=== PATIENT | female | born 1935 | race Caucasian/White ===

== ENCOUNTER 2016-12-02 12:40 | Emergency (ER) | payer OTHER ==
[~2016-12-02] VITALS: Ht 147.3 cm; Wt 68.0 kg
[~2016-12-02 12:40] MED LIST: AMLODIPINE BESY10 MG PO; ASCORBIC ACID500 M3 PO; ASPIRIN CHEWABL81 M1 PO; CALCIUM 600 +1 EAC1 PO; CELEBREX200 MG PO; DIABETA,MICRON2.5 MG PO; FERROUS SULFAT325 MG PO; GLYBURIDE2.5 MG PO; HYDROCHLOROTHIA25 MG PO; HYDROCODON-ACE1 EAC7 PO; KEFLEX500 MG PO; LIPITOR20 MG PO; LO-DOSE ASPIRIN81 M1 PO; LOSARTAN POTASS50 MG PO; MELATONIN5 M1 PO; MELOXICAM15 MG PO; NAPROSYN500 MG PO; NEXIUM40 MG PO; NORVASC5 MG PO; OS-CAL ULTRA T1 EACH; OSCAL 250 W/VI250 MG PO; SENNA-TIME S T1 EACH PO; TRADJENTA5 MG PO; TYLENOL EXTRA500 MG PO; VITAMIN C500 M1 PO; WARFARIN SODIUM4 MG PO; Xanax PO
[2016-12-02] MEDS ORDERED: KEFLEX500 MG PO (16:04)
[2016-12-02] MEDS ORDERED: BACTRIM,SEPT1 TABLET PO (16:04)
[2016-12-02 16:49] VITALS: BP 132/76
== END 2016-12-02 16:49 | disposition home or self-care (01) ==
LOC: EME 12:40
DX: L97.929 Non-pressure chronic ulcer of unspecified part of left lower leg with unspecified severity (principal); L03.116 Cellulitis of left lower limb; E11.9 Type 2 diabetes mellitus without complications; E78.5 Hyperlipidemia, unspecified; I10 Essential (primary) hypertension; K21.9 Gastro-esophageal reflux disease without esophagitis; Z88.6 Allergy status to analgesic agent
CPT/HCPCS: 99281; 99284

== ENCOUNTER 2017-06-05 23:24 | Emergency (ER) | payer OTHER ==
[~2017-06-05] VITALS: Ht 147.3 cm; Wt 65.0 kg
[~2017-06-05 23:24] MED LIST changes: +BACTRIM,SEPT1 TABLET PO
[2017-06-06 00:40] LABS: HEMATOCRIT 42.7 % (36.0-46.0); MCH 31.8 PG (29.0-34.0); MCV 96.2 FL (83-99); MEAN PLAT.VOLUME 9.3 uM^3 (9.5-12.4); PLATELET COUNT 221 K/uL (156-360); RBC DIS.WIDTH-CV 12.9 % (11.8-14.6); RBC DIS.WIDTH-SD 45.8 % (39-53); RED BLOOD COUNT 4.44 M/uL (3.80-5.20); WHITE BLOOD COUNT 6.8 K/uL (4.1-10.2)
[2017-06-06 00:52] LABS: CHLORIDE 105 mEq/L (99-109); POTASSIUM 4.2 mEq/L (3.7-5.4); SODIUM 140 mEq/L (136-147)
[2017-06-06 00:54] LABS: GLUCOSE 100 mg/dL (70-99)
[2017-06-06 00:56] LABS: ANION GAP 8 MEQ/L (2-14)
[2017-06-06 00:58] LABS: GFR ESTIMATE (CALCULATED) 42 mL/min/
[2017-06-06 00:59] LABS: UREA NITROGEN (BUN) 27 mg/dL (9-23)
[2017-06-06 02:55] VITALS: BP 191/83
== END 2017-06-06 03:21 | disposition home or self-care (01) ==
LOC: EME 23:24
PROVIDERS: Emergency Medicine
DX: M54.42 Lumbago with sciatica, left side (principal); R20.0 Anesthesia of skin; E11.9 Type 2 diabetes mellitus without complications; E78.5 Hyperlipidemia, unspecified; I10 Essential (primary) hypertension; K21.9 Gastro-esophageal reflux disease without esophagitis; Z87.891 Personal history of nicotine dependence
CPT/HCPCS: 80048; 85027; 93971; 99281; 99284

== ENCOUNTER 2017-07-14 07:15 | Emergency (ER) | payer OTHER ==
[~2017-07-14] VITALS: Ht 147.3 cm; Wt 63.8 kg
[2017-07-14 07:49] LABS: HEMATOCRIT 40.4 % (36.0-46.0); MCH 32.5 PG (29.0-34.0); MCHC 33.9 G/DL (30.0-36.0); PLATELET COUNT 205 K/uL (156-360); RBC DIS.WIDTH-CV 12.8 % (11.8-14.6); RED BLOOD COUNT 4.21 M/uL (3.80-5.20); WHITE BLOOD COUNT 5.9 K/uL (4.1-10.2)
[2017-07-14 07:50] LABS: POINT-OF-CARE METER ID UU13113702
[2017-07-14 07:54] LABS: PROTHROMBIN TIME 10.7 SEC (10.2-12.9)
[2017-07-14 07:57] LABS: PTT 27.7 SEC (25-37)
[2017-07-14 08:35] LABS: ANION GAP 10 MEQ/L (2-14); CHLORIDE 104 MEQ/L (99-109); GFR ESTIMATE (CALCULATED) 51 mL/min/; GLUCOSE 222 mg/dL (70-99); POTASSIUM 4.4 MEQ/L (3.7-5.4); SAMPLE HEMOLYSIS CHECK 0; SAMPLE ICTERIC CHECK 0; SAMPLE LIPEMIA CHECK 0; SODIUM 138 MEQ/L (136-147); UREA NITROGEN (BUN) 22 mg/dL (9-23)
[2017-07-14 08:37] LABS: ADD MIUA? NO; BILIRUBIN NEGATIVE; BLOOD NEGATIVE; COLOR YELLOW ((YELLOW)); GLUCOSE (STRIP) 150; KETONES NEGATIVE; LEUKOCYTES NEGATIVE; NITRITE NEGATIVE; PROTEIN (STRIP) NEGATIVE; SPECIFIC GRAVITY 1.016 (1.000-1.030); UROBILINOGEN 0.2 MG/DL (0.2-1.0)
[2017-07-14 08:37] LABS: TROP-I INTERPRETATION NEGATIVE; TROPONIN-I 0.01 ng/mL (0.0-0.30)
[2017-07-14 09:59] LABS: TROP-I INTERPRETATION NEGATIVE; TROPONIN-I < 0.01 ng/mL (0.0-0.30)
[2017-07-14 10:25] VITALS: BP 122/84
== END 2017-07-14 10:26 | disposition home or self-care (01) ==
LOC: EME 07:15
PROVIDERS: Nurse Practitioner Family
DX: R42 Dizziness and giddiness (principal); G56.02 Carpal tunnel syndrome, left upper limb; J98.11 Atelectasis; I10 Essential (primary) hypertension; E11.9 Type 2 diabetes mellitus without complications; Z79.84 Long term (current) use of oral hypoglycemic drugs; E78.5 Hyperlipidemia, unspecified; K21.9 Gastro-esophageal reflux disease without esophagitis; Z87.891 Personal history of nicotine dependence; Z98.1 Arthrodesis status; Z79.82 Long term (current) use of aspirin
CPT/HCPCS: 70450; 71020; 80048; 81003; 82948; 84484; 85027; 85610; 85730; 93005; 99281; 99285

== ENCOUNTER 2017-09-13 22:10 | Inpatient (IN) | payer OTHER ==
[~2017-09-13] VITALS: Ht 147.3 cm; Wt 61.8 kg
[~2017-09-13 22:10] MED LIST changes: +AMARYL2 MG PO; -AMLODIPINE BESY10 MG PO; +CYANOCOBALAM1000 MCG PO; +NORVASC10 MG PO; +VITAMIN D31000 UNI2 PO; +VITAMIN E400 UNIT PO; +ZANTAC300 MG PO
[2017-09-14 06:44] VITALS: BP 140/80
[2017-09-14 06:54] LABS: POINT-OF-CARE METER ID UU14174212
[2017-09-14 09:26] LABS: POINT-OF-CARE METER ID UU13113675
[2017-09-14 10:34] LABS: HEMATOCRIT 39.3 % (36.0-46.0); MCH 32.3 PG (29.0-34.0); MCHC 33.1 G/DL (30.0-36.0); MCV 97.8 FL (83-99); MEAN PLAT.VOLUME 9.4 uM^3 (9.5-12.4); PLATELET COUNT 196 K/uL (156-360); RBC DIS.WIDTH-CV 12.8 % (11.8-14.6); RED BLOOD COUNT 4.02 M/uL (3.80-5.20); WHITE BLOOD COUNT 6.9 K/uL (4.1-10.2)
[2017-09-14 12:13] VITALS: BP 133/62
[2017-09-14 16:06] VITALS: BP 133/60
[2017-09-14 19:09] LABS: GLUCOSE 454 mg/dL (70-99)
[2017-09-14 19:37] VITALS: BP 122/58
[2017-09-14 23:05] VITALS: BP 153/69
[2017-09-14 23:54] LABS: POINT-OF-CARE METER ID UU14208753
[2017-09-15 03:43] VITALS: BP 143/65
[2017-09-15 06:47] LABS: HEMATOCRIT 37.6 % (36.0-46.0); MCV 94.2 FL (83-99)
[2017-09-15 07:14] LABS: ANION GAP 11 MEQ/L (2-14); CHLORIDE 96 MEQ/L (99-109); GFR ESTIMATE (CALCULATED) > 59 mL/min/; POTASSIUM 3.8 MEQ/L (3.7-5.4); SAMPLE HEMOLYSIS CHECK 0; SAMPLE ICTERIC CHECK 0; SAMPLE LIPEMIA CHECK 0; SODIUM 132 MEQ/L (136-147); UREA NITROGEN (BUN) 12 mg/dL (9-23)
[2017-09-15 07:17] LABS: GLUCOSE 219 mg/dL (70-99)
[2017-09-15 08:00] VITALS: BP 157/69
[2017-09-15 11:07] LABS: POINT-OF-CARE METER ID UU14208753
[2017-09-15 12:20] VITALS: BP 189/78
[2017-09-15 19:32] VITALS: BP 178/81
[2017-09-15 23:39] VITALS: BP 154/87
[2017-09-15 23:53] LABS: POINT-OF-CARE METER ID UU14117124
[2017-09-16 05:53] LABS: HEMATOCRIT 35.6 % (36.0-46.0); MCV 92.7 FL (83-99)
[2017-09-16 06:29] LABS: ANION GAP 10 MEQ/L (2-14); CHLORIDE 98 MEQ/L (99-109); GFR ESTIMATE (CALCULATED) > 59 mL/min/; GLUCOSE 162 mg/dL (70-99); POTASSIUM 3.2 MEQ/L (3.7-5.4); SAMPLE HEMOLYSIS CHECK 0; SAMPLE ICTERIC CHECK 0; SAMPLE LIPEMIA CHECK 0; SODIUM 133 MEQ/L (136-147); UREA NITROGEN (BUN) 11 mg/dL (9-23)
[2017-09-16 06:38] LABS: POINT-OF-CARE METER ID UU14188577
[2017-09-16 07:56] VITALS: BP 139/67
[2017-09-16] MEDS ORDERED: OXYCONTIN10 MG PO (09:07)
[2017-09-16] MEDS ORDERED: LOVENOX40 MG/0.4 SC (09:07)
[2017-09-16] MEDS ORDERED: ENDOCET 5-3251 EACH PO (09:07)
[2017-09-16 11:33] LABS: POINT-OF-CARE METER ID UU14117124
[2017-09-16 15:23] VITALS: BP 126/56
[2017-09-16 23:29] VITALS: BP 127/65
[2017-09-17 07:06] LABS: ANION GAP 7 MEQ/L (2-14); CHLORIDE 99 MEQ/L (99-109); GFR ESTIMATE (CALCULATED) > 59 mL/min/; GLUCOSE 97 mg/dL (70-99); POTASSIUM 4.7 MEQ/L (3.7-5.4); SAMPLE HEMOLYSIS CHECK 0; SAMPLE ICTERIC CHECK 0; SAMPLE LIPEMIA CHECK 0; SODIUM 134 MEQ/L (136-147); UREA NITROGEN (BUN) 20 mg/dL (9-23)
[2017-09-17 08:14] VITALS: BP 147/67
== END 2017-09-17 14:35 | DRG 470 ==
LOC: ENRESERV 22:10 → 3EAST 09-14 05:22 → 2SOUTH 09-14 05:22 → ENRESERV 09-14 09:45 → 3EAST 09-14 11:20 → 2SOUTH 09-14 14:08 → 3EAST 09-17 14:35
PROVIDERS: Internal Medicine; Orthopaedic Surgery; Physician Assistant
PROC: 0SRC0J9 Replacement of Right Knee Joint with Synthetic Substitute, Cemented, Open Approach (ICD-10-PCS; principal; 2017-09-14)
DX: M17.11 Unilateral primary osteoarthritis, right knee (principal); E87.1 Hypo-osmolality and hyponatremia; E87.6 Hypokalemia; I10 Essential (primary) hypertension; E11.9 Type 2 diabetes mellitus without complications; E78.5 Hyperlipidemia, unspecified; K21.9 Gastro-esophageal reflux disease without esophagitis; E78.00 Pure hypercholesterolemia, unspecified; Z96.643 Presence of artificial hip joint, bilateral; Z79.82 Long term (current) use of aspirin
CPT/HCPCS: 71010; 73560; 80048; 82948; 84999; 85014; 85018; 85027; 97530 GO; 97530 GP; C1713; J0690; J1170; J1650; J1815; J2405; J3010; J7030; J7050